=== PATIENT | male | born 1960 | race Two or more races ===

== ENCOUNTER 2016-09-10 16:50 | Inpatient (IN) | payer OTHER ==
[~2016-09-10] VITALS: Ht 193 cm; Wt 93.4 kg
[~2016-09-10 16:50] MED LIST: HYDR-3533 PO; MELO15TA2 PO
[2016-09-30] MEDS ORDERED: ceFAZolin 2 GM PREMIX 50 ML IV SCH (05:45)
[2016-09-30] MEDS ORDERED: CHLORHEXIDINE GLUCONATE 2 % 1 PACK (2 CLOTHS) TOPICAL PRN (05:45)
[2016-09-30] MEDS ORDERED: INSULIN HUMAN REGULAR 1,000 UNITS/10 ML VIAL SQ PRN (05:45)
[2016-09-30] MEDS ORDERED: SODIUM CHLORID 0.9% 500 ML IV PRN (05:45)
[2016-09-30] MEDS ORDERED: LACTATED RINGER'S 1000 ML IV PRN (05:45)
[2016-09-30] MEDS ORDERED: VANCOMYCIN 1000 MG/NS 250 ML (for <70 kg) IV SCH ×2 (05:45)
[2016-09-30] MEDS ORDERED: METOPROLOL TARTRATE 25 MG TAB PO PRN (05:45)
[2016-09-30] MEDS ORDERED: POVIDONE IODINE 7.5% SCRUB 118 ML BOTTLE TOPICAL SCH (05:45)
[2016-09-30] MEDS ORDERED: POVIDONE IODINE 5% (ANTISEPSIS KIT) 4 APPLICATIONS EACH NARE PRN (05:45)
[2016-09-30] MEDS ORDERED: DEXAMETHASONE SOD PHOS 20 MG/5 ML VIAL IV SCH (05:45)
[2016-09-30 05:49] VITALS: BP 142/78; PULSE 62; RESP 16; TEMP 97.8; O2SAT 98
[2016-09-30] MEDS ORDERED: EXPAREL PERI-ARTICULAR INJECTION (TOTAL VOL. 60 ML) P-ARTICULR SCH ×2 (06:00)
[2016-09-30] MEDS ORDERED: SODIUM CHLORIDE 0.9% IV SCH ×2 (06:00→10:20)
[2016-09-30] MEDS ORDERED: TRANEXAMIC ACID IV SCH ×2 (06:00→10:20)
[2016-09-30] MEDS ORDERED: GENTAMICIN SULFATE 80 MG/2 ML VIAL ONE (06:29)
[2016-09-30] MEDS ORDERED: FAMOTIDINE 20 MG/2 ML VIAL ONE (06:44)
[2016-09-30] MEDS ORDERED: MIDAZOLAM HCL 2 MG/2 ML VIAL ONE (06:44)
--- NOTE | 2016-09-30 06:59 | HHI.FF ---
Face to Face Verification Diagnosis: (1) Osteoarthritis of left hip (2) Status post total hip replacement, left Physical Therapy Gait training, Transfer training, bed to chair Hip: Total hip Left LE Weight Bearing: WB as tolerated Left LE Range of Motion: Active ROM Nursing Nursing: Sharifa teaching, Dressing changes Dressing Changes: Daily dressing change I have seen patient Lexie Mina on 09/30/16. My clinical findings support the need for the requested home health care services because: Limited ability to care for self High risk of falls I certify that my clinical findings support that this patient is homebound because: Post-op weakness Unsteady gait/balance Ty Callahan Sep 30, 2016 06:59
--- NOTE | 2016-09-30 06:59 | HHI.DCPOC ---
Discharge Care Plan Diagnosis: (1) Osteoarthritis of left hip (2) Status post total hip replacement, left Your Health Problems Are: Difficulty with ADL Goals to Promote Your Health * To prevent worsening of your condition and complications * To maintain your health at the optimal level Directions to Meet Your Goals Take your medications as prescribed Follow your dietary instruction Follow activity as directed Keep your appointments as scheduled Take your immunizations and boosters as scheduled If your symptoms worsen call your PCP, if no PCP go to Urgent Care Center or Emergency Room Smoking is Dangerous to Your Health. Avoid second hand smoke Call the 24-hour hour crisis hotline for domestic abuse at Ty Callahan Sep 30, 2016 06:59
[2016-09-30] MEDS ORDERED: WALKER WHEELS/F1 MIS (07:01)
[2016-09-30] MEDS ORDERED: COMMODE 3-IN-11 MIS (07:01)
--- NOTE | 2016-09-30 09:24 | PD.OP ---
cc: Mina Burroughs MD Operative Report Date of Surgery: Sep 30, 2016 Preoperative Diagnosis: Left hip severe osteoarthritis Postoperative Diagnosis: Same Procedure: Left total hip arthroplasty Anesthesia: Spinal Surgeon: Mina Burroughs Ct Technologist(s): TAIWO Doty The surgical procedure was assisted by my Advanced Registered Nurse Practitioner. My GREEN PROMOTIONS SPECIALIST presence was necessary throughout this case for the manipulation and positioning of the surgical extremity. My GREEN PROMOTIONS SPECIALIST was assisting me throughout the duration of this procedure. The skill set of an Advance Registered Nurse Practitioner was medically necessary to complete this procedure. During the surgical case, the agronomy technician was working at the back table and the Advance Registered Nurse Practitioner was directly assisting me. Operation and Findings: IMPLANT DESCRIPTION: 1. [place] Gription Cup, acetabular size 58. 2. [place] AltrX polyethylene, neutral. 4. [place]ail femoral stem size 15, no collar, standard offset. 5. Femoral head/neck ceramic, 36, +12. ESTIMATED BLOOD LOSS: 250 cc. JUSTIFICATION FOR PROCEDURE: The patient has end-stage osteoarthritis to the hip. There is an attached conservative measures pathway form in the chart that describes the nonoperative measures that were undertaken prior to consideration of surgical management. The patient understood the risks and benefits of surgical management. See my office notes for further details. PROCEDURE: The patient was brought back to the operative theatre. Adequate anesthesia was obtained. The patient received intravenous vancomycin and Ancef. The patient was carefully placed on the operative table. The lower extremity was prepped and draped in the usual sterile fashion. Fluoroscopic images were obtained. We made a standard anterior incision over the hip. We dissected through the TFL fascia, exposing the anterior capsule. Arthrotomy was performed in a T-shaped fashion. The capsule was tagged with a #2 FiberWire. End-stage arthritis was identified. Osteotomy was performed through the femoral neck exposing the acetabulum. Remnants of the labrum were resected and osteophytes were removed. We sequentially reamed the acetabulum. We trialed the hip and placed the final cup into position. This was done under fluoroscopic guidance to obtain the appropriate inclination and anteversion. A manhole cover was placed into the acetabular component. We then placed the final polyethylene into position and confirmed that it was well seated. Capsular attachments on the calcar and the inner aspect of the greater trochanter were resected. On the proximal aspect of the femur we used a rongeur , box osteotome, canal finder, sequential broaches and lateralizing rasp. We calcar planed the proximal femur. Then thoroughly irrigated the wound. We trialed the hip with the appropriate size stem. We placed the final stem in to position and trialed again. The hip was stable while it was externally rotated 70 degrees when the leg was lowered to the floor. The final head was applied, and final fluoroscopic images were obtained. The wound was thoroughly irrigated again. Interarticular injection of liposomal bupivacaine was given. The capsule was closed with #2 FiberWire and #1 Vicryl. The deep fascia was closed with a #2 Stratafix, followed by 2-0 Vicryl in the skin and yuan. Postop plan is to weight-bear as tolerated. DVT prophylaxis will be performed with Stephanie, BIANKA osei, early mobilization, and Lovenox followed by aspirin. Mina Burroughs MD Sep 30, 2016 09:24
[2016-09-30] MEDS ORDERED: ENOX40P SQ (09:25)
[2016-09-30] MEDS ORDERED: NORC5TAB PO (09:25)
[2016-09-30] MEDS ORDERED: ASPI325T PO (09:25)
[2016-09-30] MEDS ORDERED: diphenhydrAMINE HCL 50 MG/ML VIAL IV PRN (09:30)
[2016-09-30] MEDS ORDERED: ACETAMINOPHEN/HYDROcodone 325 MG/5 MG TAB PO PRN (09:30)
[2016-09-30] MEDS ORDERED: ALUMINUM/MAGNESIUM/SIMETH 30 ML CUP PO PRN (09:30)
[2016-09-30] MEDS ORDERED: BISACODYL 10 MG SUPP RECTAL PRN (09:30)
[2016-09-30] MEDS ORDERED: SODIUM CHLORIDE 0.9% FLUSH 5 ML FLUSH IVF PRN (09:30)
[2016-09-30] MEDS ORDERED: NALOXONE HCL 0.4 MG/ML AMP IV PRN (09:30)
[2016-09-30] MEDS ORDERED: MAGNESIUM HYDROXIDE SUSP 30 ML CUP PO PRN (09:30)
[2016-09-30] MEDS ORDERED: ONDANSETRON HCL 4 MG/2 ML VIAL IVP PRN (09:30)
[2016-09-30] MEDS ORDERED: ZOLPIDEM TARTRATE 5 MG TAB PO PRN (09:30)
[2016-09-30] MEDS ORDERED: MORPHINE SULFATE 4 MG/ML INJ IV PUSH PRN (09:30)
[2016-09-30] MEDS ORDERED: Post-op Orders (for Pharmacy) MISC XX ONE (09:45)
--- NOTE | 2016-09-30 09:51 | RADRPT ---
EXAM DATE/TIME: 09/30/2016 07:27 [facility] COMPARISON: No previous studies available for comparison. INDICATIONS : Left total hip arthroplasty. MEDICAL HISTORY : None. SURGICAL HISTORY : Right shoulder. ENCOUNTER: Initial ACUITY: 1 day PAIN SCORE: Non-responsive. LOCATION: Left hip FINDINGS: The patient is status post a total hip arthroplasty with a bipolar prosthesis. Prosthesis is [place]. Alignment is anatomic. A fracture is not appreciated. CONCLUSION: Anatomic alignment. Lew Pinto MD FACR Lew Pinto MD FACR on September 30, 2016 at 9:49 Board Certified Radiologist. This report was verified electronically.
[2016-09-30] MEDS: SODIUM CHLOR 0.9% 1000 ML INJ 1,000 ML IV SCH ×2 (10:20→19:20)
[2016-09-30] MEDS ORDERED: *morphine SULFATE 8 MG/ML PERIprocedure ONLY ONE (10:27)
--- NOTE | 2016-09-30 10:28 | RADRPT ---
EXAM DATE/TIME: 09/30/2016 09:42 [facility] COMPARISON: No previous studies available for comparison. INDICATIONS : Post op left hip surgery. MEDICAL HISTORY : None. SURGICAL HISTORY : None. ENCOUNTER: Initial ACUITY: 1 day PAIN SCORE: 4/10 LOCATION: Left hip and pelvis FINDINGS: The patient is status post a total hip arthroplasty with a bipolar prosthesis. Prosthesis is [place]. Alignment is anatomic. A fracture is not appreciated. CONCLUSION: Anatomic alignment. Lew Pinto MD FACR Board Certified Radiologist. This report was verified electronically.
[2016-09-30 11:00] VITALS: BP 115/70; PULSE 50; RESP 16; TEMP 95.6; O2SAT 98
[2016-09-30] MEDS ORDERED: DO NOT ADM ANY ANTICOAGULANT DRUGS PRN (11:00)
[2016-09-30] MEDS ORDERED: LACTATED RINGER'S 1000 ML INJ 2,000 ML IV ONE (12:00)
[2016-09-30] MEDS ORDERED: ONDANSETRON HCL 4 MG/2 ML VIAL IV PUSH ONE (12:00)
[2016-09-30] MEDS ORDERED: PROPOFOL 200 MG/20 ML AMP IV ONE (12:00)
[2016-09-30 16:00] VITALS: BP 107/62; PULSE 64; RESP 16; TEMP 96.6; O2SAT 99
[2016-09-30 16:06] VITALS: O2SAT 98
[2016-09-30 20:25] VITALS: BP 113/54; PULSE 73; RESP 16; TEMP 96.9; O2SAT 100
[2016-09-30] MEDS: SODIUM CHLORIDE 0.9% FLUSH 5 ML FLUSH IVF SCH (21:00)
[2016-09-30] MEDS: ACETAMINOPHEN/HYDROcodone 325 MG/5 MG TAB PO PRN (23:43)
[2016-10-01 00:05] VITALS: BP 126/62; PULSE 81; RESP 16; TEMP 97.6; O2SAT 98
[2016-10-01 04:10] VITALS: BP 117/58; PULSE 69; RESP 16; TEMP 97.1; O2SAT 98
[2016-10-01] MEDS: SODIUM CHLOR 0.9% 1000 ML INJ 1,000 ML IV SCH ×2 (05:20→15:20)
[2016-10-01] MEDS ORDERED: DEXAMETHASONE SOD PHOS 20 MG/5 ML VIAL IV ONE (07:45)
[2016-10-01 07:56] LABS: MEAN CELL VOLUME 82.6 FL (80.0-100.0); MEAN CORPUSCULAR HGB CONC 32.7 % (32.0-36.0); PLATELET COUNT 160 TH/MM3 (150-450); RED BLOOD COUNT 4.72 MIL/MM3 (4.50-5.90); RED CELL DISTRIBUTION WIDTH 12.7 % (11.6-17.2); REVIEW FLAG FINAL; WHITE BLOOD COUNT 11.1 TH/MM3 (4.0-11.0)
[2016-10-01 08:00] VITALS: BP 96/74; PULSE 114; RESP 16; TEMP 97; O2SAT 100
[2016-10-01] MEDS: SODIUM CHLORIDE 0.9% FLUSH 5 ML FLUSH IVF SCH ×2 (09:37→20:02)
[2016-10-01] MEDS: ENOXAPARIN SODIUM 40 MG/0.4 ML SYRINGE SQ SCH (09:38)
--- NOTE | 2016-10-01 11:57 | PD.ORT.PN ---
Subjective Post Op Day #: 1 Subjective Remarks Patient is resting comfortably in bed with at bedside. Patient c/o mild to moderate left hip pain. Objective Vitals Vital Signs Date Time Temp Pulse Resp B/P Pulse Ox O2 Delivery O2 Flow Rate FiO2 10/01/16 08:00 97.0 114 16 96/74 100 10/01/16 04:10 97.1 69 16 117/58 98 10/01/16 00:05 97.6 81 16 126/62 98 09/30/16 20:25 96.9 73 16 113/54 100 09/30/16 16:06 98 21 09/30/16 16:00 96.6 64 16 107/62 99 I/O 09/30/16 09/30/16 09/30/16 10/01/16 10/01/16 10/01/16 07:00 15:00 23:00 07:00 15:00 23:00 Intake Total 2660 ml 899 ml 240 ml Output Total 100 ml 500 ml 800 ml Balance 2560 ml 399 ml -560 ml Intake Oral 660 ml 240 ml 240 ml IV Total 300 ml 659 ml Other 1700 ml Output Urine Total 0 ml 500 ml 800 ml Estimated Blood Loss 100 ml # Voids 4 # Bowel Movements 0 0 0 Result Diagram: 10/01/16 0655 Procedures Left BRENNON Objective Remarks Patient's dressing changed with no drainage. Incision is well approximated with surgical clips intact. No redness or s/s of infection. Mild ecchymosis to the left hip. EHL/TA/G intact. Calf is soft and nontender. 2+ pedal pulse. + SILT. Assessment & Plan Ortho Post Op Day #: 1 Problem List: Assessment and Plan POD #1: Left BRENNON 1. WBAT LLE 2. Lovenox followed by ASA for DVT prophylaxis 3. Ice to the left hip PRN 4. Anticipatory discharge home with home health on Wednesday. 5. F/U with Dr. Burroughs or Sharif MARAVILLA in the office as scheduled. Ty Callahan Oct 01, 2016 11:57
[2016-10-01 12:00] VITALS: BP_SYST 117; BP_SYST 151; BP_DIAS 62; BP_DIAS 81; PULSE 102; PULSE 70; RESP 16; RESP 20; TEMP 97.9; TEMP 99.5; O2SAT 95; O2SAT 99
[2016-10-01 16:00] VITALS: BP 149/76; PULSE 76; RESP 18; TEMP 98; O2SAT 96
[2016-10-01] MEDS: DOCUSATE SODIUM 100 MG CAP PO SCH (20:02)
[2016-10-01] MEDS: MULTIVITAMINS/MINERALS THERAPEUTIC TAB PO SCH (20:02)
[2016-10-01 20:05] VITALS: BP 125/70; PULSE 76; RESP 16; TEMP 98; O2SAT 97
[2016-10-02 00:05] VITALS: BP 129/70; PULSE 70; RESP 16; TEMP 97.4; O2SAT 98
[2016-10-02] MEDS: SODIUM CHLOR 0.9% 1000 ML INJ 1,000 ML IV SCH ×2 (01:20→11:20)
[2016-10-02 08:00] VITALS: BP 109/69; PULSE 78; RESP 16; TEMP 98.1; O2SAT 97
[2016-10-02] MEDS: SODIUM CHLORIDE 0.9% FLUSH 5 ML FLUSH IVF SCH (09:00)
[2016-10-02] MEDS: ENOXAPARIN SODIUM 40 MG/0.4 ML SYRINGE SQ SCH (09:57)
[2016-10-02] MEDS: MULTIVITAMINS/MINERALS THERAPEUTIC TAB PO SCH (09:57)
[2016-10-02] MEDS: DOCUSATE SODIUM 100 MG CAP PO SCH (09:57)
[2016-10-02 09:58] LABS: HEMATOCRIT 39.6 % (39.0-51.0); MEAN CORPUSCULAR HEMOGLOBIN 27.4 PG (27.0-34.0); MEAN CORPUSCULAR HGB CONC 33.4 % (32.0-36.0); PLATELET COUNT 152 TH/MM3 (150-450); RED BLOOD COUNT 4.82 MIL/MM3 (4.50-5.90); RED CELL DISTRIBUTION WIDTH 13.3 % (11.6-17.2); REVIEW FLAG FINAL; WHITE BLOOD COUNT 12.6 TH/MM3 (4.0-11.0)
[2016-10-02] MEDS: ACETAMINOPHEN/HYDROcodone 325 MG/5 MG TAB PO PRN ×2 (10:04→16:04)
[2016-10-02 12:00] VITALS: BP 119/73; PULSE 64; RESP 16; TEMP 96.8; O2SAT 98
--- NOTE | 2016-10-02 12:12 | PD.ORT.PN ---
Subjective Post Op Day #: 2 Subjective Remarks Patient is OOB in chair with at bedside. Patient reports minimal pain to the left hip. Patient states his arthritic pain is better and he is no longer having back pain. Objective Vitals Vital Signs Date Time Temp Pulse Resp B/P Pulse Ox O2 Delivery O2 Flow Rate FiO2 10/02/16 08:00 98.1 78 16 109/69 97 10/02/16 00:05 97.4 70 16 129/70 98 10/01/16 20:05 98.0 76 16 125/70 97 10/01/16 16:00 98.0 76 18 149/76 96 I/O 10/01/16 10/01/16 10/01/16 10/02/16 10/02/16 10/02/16 07:00 15:00 23:00 07:00 15:00 23:00 Intake Total 240 ml 600 ml 480 ml 480 ml Output Total 800 ml Balance -560 ml 600 ml 480 ml 480 ml Intake Oral 240 ml 600 ml 480 ml 480 ml Output Urine Total 800 ml # Voids 3 1 1 # Bowel Movements 0 0 0 0 Result Diagram: 10/02/16 0857 Procedures Left BRENNON Objective Remarks Patient's dressing is C/D/I. Moderate swelling and ecchymosis to the left hip. EHL/TA/G intact. Calf is soft and nontender. 2+ pedal pulse. + SILT. Assessment & Plan Ortho Post Op Day #: 2 Problem List: Assessment and Plan POD #2: Left BRENNON 1. WBAT LLE 2. Lovenox followed by ASA for DVT prophylaxis 3. Ice to the left hip PRN 4. Stable for discharge home with home health today. 5. F/U with Dr. Burroughs or Sharif MARAVILLA in the office as scheduled. Ty Callahan Oct 02, 2016 12:12
[2016-10-02 16:30] VITALS: BP 121/66; PULSE 61; RESP 16; TEMP 97.2; O2SAT 99
--- NOTE | 2016-10-05 08:43 | HHI.DS ---
Discharge Summary Admission Date Sep 30, 2016 at 05:11 Discharge Date: Oct 09, 2016 Admitting Diagnosis OA of the left hip Status post total hip replacement, left Diagnosis: (1) Status post total hip replacement, left Diagnosis: Principal (2) Osteoarthritis of left hip Diagnosis: Principal Procedures Left BRENNON Brief History This is a 56 year old male patient with severe OA of the left hip. CBC/BMP: 10/02/16 0857 Significant Findings Laboratory Tests Test 10/02/16 08:57 White Blood Count 12.6 TH/MM3 (4.0-11.0) PE at Discharge Patient's dressing is C/D/I. Moderate swelling and ecchymosis to the left hip. EHL/TA/G intact. Calf is soft and nontender. 2+ pedal pulse. + SILT. Hospital Course The patient was admitted to the hospital for severe OA of the left hip to have a left BRENNON. The patient tolerated surgery well without complication. The patient is WBAT. The patient is on a regular diet.The patient is on Lovenox followed by aspirin for DVT prophylaxis. The patient will be discharged to home with home health and will follow-up with Dr. Burroughs in the office as previously scheduled. Pt Condition on Discharge: Stable Discharge Disposition: Disch w/ Home Health Serv Discharge Instructions Diet Instructions: As Tolerated, No Restrictions Activities You Can Perform: Weight Bearing as Nasreen Activities to Avoid: Strenuous Activity Follow up Referrals: Orthopedics with Mina Burroughs MD [facility]/ with [facility] New Medications: Aspirin (Aspirin) 325 Mg Tab 325 MG PO DAILY Start Aspirin after Lovenox is completed. Prevent Blood Clot # 30 Ref 0 TAB Commode 3-in-1 (Commode 3-in-1) 1 Mis Mis 1 EA .ROUTE DIRECTED #1 Ref 0 EA Enoxaparin Inj (Lovenox Inj) 40 Mg/0.4 Ml Syr 40 MG SQ DAILY Start Aspirin after Lovenox is completed. Blood Clot Prevention # 10 Ref 0 SYRINGE Hydrocodone-Acetaminophen (Crescent) 5-325 mg Tab 1-2 TAB PO Q4H PRN PAIN #60 Ref 0 TAB Walker with Front Wheels (Walker with Front Wheels) 1 Mis Mis 1 EA .ROUTE DIRECTED #1 Ref 0 EA Ty Callahan Oct 05, 2016 08:43
== END 2016-10-02 17:35 | disposition home health service (06) | DRG 470 ==
LOC: HSDI 09-30 05:11 → N06B 09-30 10:55
PROVIDERS: ADMIT Orthopaedic Surgery; ATTEND Orthopaedic Surgery
PROC: 0SRB03A Replacement of Left Hip Joint with Ceramic Synthetic Substitute, Uncemented, Open Approach (ICD-10-PCS; principal; 2016-09-30 06:47)
DX: M16.12 Unilateral primary osteoarthritis, left hip (principal)
CPT/HCPCS: 73502; 76000; 85027; 86850; 86900; 86901; 94150; C1776; C9290; J0690; J1100; J1580; J1650; J2250; J2270; J2405; J3370; J7030; J7050; J7120

== ENCOUNTER 2017-12-22 05:17 | Inpatient (IN) ==
[2017-12-22] MEDS ORDERED: Dexamethasone Inj 20 MG/5 ML Vial IV.PUSH PRN (05:52)
[2017-12-22] MEDS ORDERED: ceFAZolin 2 GM Premix Inj 2 GM/50 ML PIGGYBACK IV.SIG SCH (06:00)
[2017-12-22] MEDS ORDERED: TRANEXAMIC ACID IV.SIG SCH ×2 (06:00→10:00)
[2017-12-22] MEDS ORDERED: Chlorhexidine Gluconate 2% 1 Pack (2 Cloths) TOPICAL ONE (06:00)
[2017-12-22] MEDS ORDERED: Metoprolol Tartrate 25 MG Tablet PO ONE (06:00)
[2017-12-22] MEDS ORDERED: Sodium Chlor 0.9% Inj 40 ML, Bupivacaine Liposo PF 1.3% Inj 20 ML P-ARTICULR SCH ×2 (06:00)
[2017-12-22] MEDS ORDERED: SODIUM CHLOR 0.9% IV.SIG SCH ×2 (06:00→10:00)
[2017-12-22] MEDS ORDERED: Sodium Chlor 0.9% Inj 500 ML IV.SIG SCH (06:00)
[2017-12-22] MEDS ORDERED: Vancomycin Inj 1,000 MG in Sodium Chlor 0.9% Inj 250 ML IV.SIG SCH (06:00)
[2017-12-22] MEDS ORDERED: Chlorhexidine 4% Topical 120 APPLIC/120 ML Bottle TOPICAL SCH (06:00)
[2017-12-22] MEDS ORDERED: Famotidine PF Inj 20 MG/2 ML Vial ONE (06:17)
[2017-12-22] MEDS ORDERED: fentaNYL Citrate Inj 250 MCG/5 ML Ampul ONE (06:17)
[2017-12-22] MEDS ORDERED: fentaNYL Citrate Inj 100 MCG/2 ML Ampul ONE (06:17)
[2017-12-22] MEDS ORDERED: Ketamine Inj 50 MG/5 ML Syringe IV.PUSH ONE (06:38)
[2017-12-22] MEDS ORDERED: Ketorolac Inj 30 MG/ML (IVP) Vial IV.PUSH ONE (06:47)
[2017-12-22] MEDS ORDERED: Lidocaine PF 1% Inj 5 ML Syringe OTHER ONE (06:47)
[2017-12-22] MEDS ORDERED: Neostigmine Inj 5 MG/5 ML Syringe IV.PUSH ONE (06:47)
[2017-12-22] MEDS ORDERED: Glycopyrrolate Inj 1 MG/5 ML Syringe IV.PUSH ONE (06:47)
--- NOTE | 2017-12-22 06:57 | P.DCO ---
- Physical Therapy Physical Therapy: Gait training, Transfer training, bed to chair Hip: Total hip Right Lower Extremity Weight Bearing: Weight bearing as tolerated Right Lower Extremity Range of Motion: Active ROM - Nursing Nursing: Sharifa morales Dressing changes: Do not change dressing Additional instructions: First dressing change in the office - Certification Need for Home Health services: I have seen patient Lexie Mina on 12/22/17. My clinical findings support the need for the requested home health care services because: Need for Home Health Services: Limited ability to care for self, High risk of falls Homebound Certification: I certify that my clinical findings support that this patient is homebound because: Homebound Certification: Post-op weakness, Unsteady gait/balance
[2017-12-22] MEDS ORDERED: Zolpidem Tartrate 5 MG Tablet PO PRN (08:48)
[2017-12-22] MEDS ORDERED: Morphine Sulfate Inj 2 MG/ML Vial IV.PUSH PRN (08:48)
[2017-12-22] MEDS ORDERED: Bisacodyl 10 MG Supp RECTAL PRN (08:48)
[2017-12-22] MEDS ORDERED: Aluminum/Magnesium/Simethacone Susp 30 ML UDC PO PRN (08:48)
--- NOTE | 2017-12-22 08:52 | P.OP ---
- Preoperative Diagnosis (1) Osteoarthritis of right hip - Postoperative Diagnosis (1) Osteoarthritis of right hip Date of procedure: 12/22/17 Procedure: Right total hip arthroplasty Anesthesia: GETA Surgeon: Mina Burroughs MD Slag Dumper: TAIWO Doty The surgical procedure was assisted by my Advanced Registered Nurse Practitioner. My RICE DRIER OPERATOR presence was necessary throughout this case for the manipulation and positioning of the surgical extremity. My RICE DRIER OPERATOR was assisting me throughout the duration of this procedure. The skill set of an Advance Registered Nurse Practitioner was medically necessary to complete this procedure. During the surgical case, the surgical physician assistant was working at the back table and the Advance Registered Nurse Practitioner was directly assisting me. Operation and Findings: IMPLANT DESCRIPTION: 1. [place] Gription Cup, acetabular size 58. 2. [place] AltrX polyethylene, neutral. 4. [place] femoral stem size 15, with collar, standard offset. 5. Femoral head/neck ceramic, 36, +1.5. ESTIMATED BLOOD LOSS: 200 cc. JUSTIFICATION FOR PROCEDURE: The patient has end-stage osteoarthritis to the hip. There is an attached conservative measures pathway form in the chart that describes the nonoperative measures that were undertaken prior to consideration of surgical management. The patient understood the risks and benefits of surgical management. See my office notes for further details. PROCEDURE: The patient was brought back to the operative theatre. Adequate anesthesia was obtained. The patient received intravenous vancomycin and Ancef. The patient was carefully placed on the operative table. The lower extremity was prepped and draped in the usual sterile fashion. Fluoroscopic images were obtained. We made a standard anterior incision over the hip. We dissected through the TFL fascia, exposing the anterior capsule. Arthrotomy was performed in a T-shaped fashion. The capsule was tagged with a #2 FiberWire. End-stage arthritis was identified. Osteotomy was performed through the femoral neck exposing the acetabulum. Remnants of the labrum were resected and osteophytes were removed. We sequentially reamed the acetabulum. We trialed the hip and placed the final cup into position. This was done under fluoroscopic guidance to obtain the appropriate inclination and anteversion. A manhole cover was placed into the acetabular component. We then placed the final polyethylene into position and confirmed that it was well seated. Capsular attachments on the calcar and the inner aspect of the greater trochanter were resected. On the proximal aspect of the femur we used a rongeur , box osteotome, canal finder, sequential broaches and lateralizing rasp. We calcar planed the proximal femur. Then thoroughly irrigated the wound. We trialed the hip with the appropriate size stem. We placed the final stem in to position and trialed again. The hip was stable while it was externally rotated 70 degrees when the leg was lowered to the floor. We were between the +5 and the +1.5 neck lengths. We felt that the +1.5 equalized the leg lengths better compared to the other side. Note that the right hip was long preoperatively compared to the left side so we were trying to shorten it somewhat to equalize leg lengths. The final head was applied, and final fluoroscopic images were obtained. The wound was thoroughly irrigated again. Interarticular injection of liposomal bupivacaine was given. The capsule was closed with #2 FiberWire and #1 Vicryl. The deep fascia was closed with a #2 Stratafix, followed by 2-0 Vicryl in the skin and Dermabond dressing. Postop plan is to weight-bear as tolerated. DVT prophylaxis will be performed with Stephanie, BIANKA osei, early mobilization, and Lovenox for 3 weeks.
[2017-12-22] MEDS ORDERED: Post-op Orders (for Pharmacy) OTHER STA (09:17)
[2017-12-22] MEDS ORDERED: *Meperidine Inj 25 MG/ML Vial PERIprocedural Use ONLY ONE (09:27)
--- NOTE | 2017-12-22 09:58 | XR ---
EXAM DATE: 12/22/2017 8:48 AM EDT AGE/SEX: 57 years / Male INDICATIONS: Post op right total hip. CLINICAL DATA: This is the patient's subsequent encounter. Patient reports that signs and symptoms h ave been present for 1 day and indicates a pain score of Nonresponsive. MEDICAL/SURGICAL HISTORY: None. . Left total hip arthroplasty. COMPARISON: [facility] [place], HIP LEFT (AP&LAT 2/3VWS) W AP PELVIS, 09/30/2016. . FINDINGS: Interval right hip arthroplasty. Arthroplasty components are in anatomic alignment and well positione d. No acute bony fractures. Redemonstration of left hip arthroplasty. CONCLUSION: 1. Status post right hip arthroplasty in anatomic alignment without acute fracture. Electronically signed by: Vernon Heath MD 12/22/2017 9:57 AM EDT
[2017-12-22] MEDS: Sod Chloride 0.9% Inj 1,000 ML IV.CONT SCH ×2 (10:18→23:31)
--- NOTE | 2017-12-22 12:57 | XR ---
EXAM DATE: 12/22/2017 12:00 AM EDT AGE/SEX: 57 years / Male INDICATIONS: Placement of total right hip in or. CLINICAL DATA: This is the patient's initial encounter. Patient reports that signs and symptoms have been present for 1 day and indicates a pain score of Nonresponsive. MEDICAL/SURGICAL HISTORY: None. . Total left hip. COMPARISON: No prior exams available for comparison. FINDINGS: Status post placement of a right hip prosthesis. There is good position and alignment of the prosthes is with the bony structures. The hardware is grossly intact. CONCLUSION: Good position and alignment on this postoperative study. Electronically signed by: George Keith MD 12/22/2017 12:56 PM EDT
[2017-12-22] MEDS: Senna/Docusate Sodium 8.6/50 MG Tablet PO SCH ×2 (13:12→21:42)
[2017-12-22] MEDS: Multivitamin/Minerals Therapeutic Tablet PO SCH ×2 (13:12→21:42)
[2017-12-22] MEDS ORDERED: Influenza (Quadrivalent) Vaccine 0.5 ML Syringe IM ONE (15:30)
[2017-12-23 07:16] LABS: Hematocrit 36.7 % (39.0-51.0); Hemoglobin 12.6 gm/dL (13.0-17.0)
--- NOTE | 2017-12-23 07:20 | P.PNOP ---
Subjective Interval history: The patient is resting comfortably in bed in no acute distress. The patient reports minimal pain to the right hip. The patient states he does want to go home today with home health. Physical Exam Vital signs: Vital Signs 12/22/17 09:19 12/22/17 09:45 12/22/17 10:00 Temperature 97.7 F 97.6 F Pulse Rate 64 76 76 Respiratory Rate 16 16 16 Blood Pressure 117/60 131/61 Pulse Oximetry 100 99 99 12/22/17 10:15 12/22/17 10:30 12/22/17 10:45 Temperature Pulse Rate 69 68 72 Respiratory Rate 16 16 16 Blood Pressure 129/72 134/72 130/71 Pulse Oximetry 99 99 99 12/22/17 11:00 12/22/17 12:00 12/22/17 16:00 Temperature 97.6 F 97.7 F 98.0 F Pulse Rate 72 89 77 Respiratory Rate 16 16 16 Blood Pressure 136/69 142/69 H 107/58 L Pulse Oximetry 99 99 98 12/22/17 20:00 12/23/17 00:00 12/23/17 04:00 Temperature 98.2 F 98.3 F 98 F Pulse Rate 78 82 76 Respiratory Rate 18 18 18 Blood Pressure 132/60 118/54 L 119/63 Pulse Oximetry 99 97 98 Intake & Output 12/22/17 12/23/17 12/23/17 18:59 06:59 18:59 Intake Total 2449.15 / 2449.15 970 / 970 Output Total 150 / 150 Balance 2299.15 / 2299.15 970 / 970 Weight 91.5 kg Intake: IV 209.15 / 209.15 750 / 750 NS Inj 1,000 ML @ 80 mls/hr IV. 650 / 650 CONT .[id number] [facility] Rx#:[id number] Cyklokapron Inj 915 MG In NS 109.15 / 109.15 Inj 100 ML @ 200 mls/hr IV.SIG ONCE [facility] Rx#:[id number] Ancef Inj 1,000 MG In NS Inj 100 / 100 100 / 100 100 ML @ 200 mls/hr IV.SIG Q6H [facility] Rx#:[id number] Oral 240 / 240 220 / 220 Anesthesia Amount 1999 / 1999 Output: Estimated Blood Loss 150 / 150 Other: # Voids 1 1 Date of Last Bowel Movement 12/21/17 # Bowel Movements 0 Narrative: The patient's dressing is clean, dry, and intact. EHL/TA/G are intact. 2+ pedal pulse. The patient's calf is soft and nontender. Sensation is intact to light touch distally. Results - Labs CBC & Chem 7: 12/23/17 05:17 Laboratory Results - last 24 hr 12/22/17 12/23/17 05:55 05:17 Hgb 12.6 L Hct 36.7 L Blood Type B Positive Blood Type Recheck Not needed Antibody Screen Negative - Imaging Impressions Hip X-Ray 12/22/17 00:00 CONCLUSION: Good position and alignment on this postoperative study. Hip X-Ray 12/22/17 08:48 CONCLUSION: 1. Status post right hip arthroplasty in anatomic alignment without acute fracture. - Procedures Right total hip arthroplasty Assessment and Plan - Problem List (1) Osteoarthritis of right hip Code(s): M16.11 - Unilateral primary osteoarthritis, right hip Status: Acute (2) Status post total hip replacement, right Code(s): Z96.641 - Presence of right artificial hip joint Status: Acute - Assessment and Plan POD #1: [Right] total hip arthroplasty 1. Weightbearing as tolerated on [right] lower extremity. 2. Lovenox times 3 weeks for DVT prophylaxis. 3. Ice as needed for swelling. 4. Stable per ortho for discharge to home health today. 5. The patient will follow up with Dr. Burroughs and/or TAIWO Hull as previously scheduled.
[2017-12-23] MEDS ORDERED: Dexamethasone Inj 20 MG/5 ML Vial IV.PUSH ONE (08:00)
[2017-12-23] MEDS: Multivitamin/Minerals Therapeutic Tablet PO SCH (08:58)
[2017-12-23] MEDS ORDERED: Enoxaparin Inj 40 MG/0.4 ML Syringe SQ SCH (09:00)
[2017-12-23] MEDS: Senna/Docusate Sodium 8.6/50 MG Tablet PO SCH (10:30)
[2017-12-23 12:14] VITALS: BP 125/69; PULSE 79; RESP 21; TEMP 98; O2SAT 97
[2017-12-23] MEDS: Sod Chloride 0.9% Inj 1,000 ML IV.CONT SCH (12:32)
[2017-12-23] MEDS ORDERED: Influenza (Quadrivalent) Vaccine 0.5 ML Syringe IM ONE (16:00)
--- NOTE | 2017-12-24 11:40 | P.DS ---
Date of admission: 12/22/17 05:17 Primary care physician: PROVIDER NON STAFF Attending physician on discharge: Mina Burroughs Anticipated date of discharge: 12/23/17 Brief History from admission: The patient was admitted to the hospital for severe OA of the right hip to have a right BRENNON. DS: Diagnosis - Discharge Diagnosis (1) Osteoarthritis of right hip Status: Acute (2) Status post total hip replacement, right Status: Acute DS: Summary Hospital Course: The patient was admitted to the hospital for severe OA of the right hip to have a right BRENNON. The patient's surgery went well with no complications. The patient is WBAT on the right lower extremity. The patient is on a regular diet. The patient was placed on 3 weeks of Lovenox injections for DVT prophylaxis. The patient was discharged home with home health and will f/u in the office as previously scheduled with Dr. Burroughs or Sharif Callahan, JOSE ENRIQUE. - Time Spent with Patient Total time spent providing and/or coordinating discharge services: Greater than 30 minutes - Quality: VTE Deep Vein Thrombosis/Pulmonary Embolism Present on Admission: No Exam Vital signs: Vital Signs 12/23/17 12:00 Temperature 98.0 F Pulse Rate 79 Respiratory Rate 21 Blood Pressure 125/69 Pulse Oximetry 97 Intake & Output 12/23/17 12/24/17 12/24/17 18:59 06:59 18:59 Intake Total 1000 / 1000 Balance 1000 / 1000 Intake: IV 1000 / 1000 NS Inj 1,000 ML @ 80 mls/hr IV. 1000 / 1000 CONT .[id number] [facility] Rx#:[id number] Other: Date of Last Bowel Movement 12/21/17 Narrative: The patient's dressing is clean, dry, and intact. EHL/TA/G are intact. 2+ pedal pulse. The patient's calf is soft and nontender. Sensation is intact to light touch distally. Results Procedures completed during hospitalization: Right total hip arthroplasty - Impressions ITS Impressions Hip X-Ray 12/22/17 08:48 CONCLUSION: 1. Status post right hip arthroplasty in anatomic alignment without acute fracture. Discharge Plan - Discharge Disposition Patient Disposition: W/Home Health Service - Discharge Condition Condition: Stable - Discharge Order Discharge Orders: Discharge Order (Routine); Ordered 12/22/17 Ordered By: Ty Callahan - Discharge Details Anticipated Discharge Date: 12/23/17 - Physicians Team Primary Care Provider: NON STAFF,PROVIDER Attending Provider: Mina Burroughs Other Providers: ; [employer] - Rxs /Orders / Referrals /Forms Prescriptions: No Action No Known Home Medications Ambulatory Orders / Order Sets / DME: Adjustable Commode 3-in-1 (1 each) (Routine) Location: Determined by Patient Ordered By: Ty Callahan Walker With Front Wheels (1 each) (Routine) Location: Determined by Patient Ordered By: Ty Callahan Referrals: Mina Burroughs MD [Physician] - See Instructions (f/u in the office as previously scheduled with Dr. Burroughs or Sharif Callahan APRN) NON STAFF,PROVIDER [Primary Care Provider] - See Instructions
== END 2017-12-23 13:17 | disposition home health service (06) ==
LOC: HSDI 05:17 → N06 11:21
PROVIDERS: ADMIT Orthopaedic Surgery; ATTEND Orthopaedic Surgery